=== PATIENT | female | born 1985 | race Caucasian/White ===

== ENCOUNTER 2019-04-26 14:50 | Inpatient (IN) | payer MEDICAID, SELFPAY ==
[~2019-04-26] VITALS: Ht 165.1 cm; Wt 71.9 kg
[2019-04-26] MEDS ORDERED: SODIUM CHLORIDE FLUSH 10ML SYR IVF ONE ×2 (15:00→16:00)
[2019-04-26] MEDS ORDERED: FUROSEMIDE 40 MG/4 ML ONE (15:34)
[2019-04-26] MEDS ORDERED: NITROGLYCERIN OINT 2%, 1GM TP ONE ×2 (15:34→16:00)
[2019-04-26 15:35] LABS: BASOPHILS # (AUTO) 0.06 x10^3/uL (0-0.1); BASOPHILS % (AUTO) 1 % (0-1); EOSINOPHILS # (AUTO) 0.11 x10^3/uL (0-0.4); EOSINOPHILS % (AUTO) 1 % (1-7); INTERNATIONAL NORMALIZED RATIO 1.2 (0.93-1.1); LYMPHOCYTES # (AUTO) 1.94 x10^3/uL (1-3.4); LYMPHOCYTES % (AUTO) 22 % (22-44); MD NO; MEAN CORPUSCULAR HEMOGLOBIN 33.4 pg (27.0-34.8); MEAN CORPUSCULAR VOLUME 98.2 fL (80-100); MEAN PLATELET VOLUME 7.7 fL (7.4-10.4); MONOCYTES % (AUTO) 7 % (2-9); NEUTROPHILS # (AUTO) 6.32 x10^3/uL (1.8-6.8); NEUTROPHILS % (AUTO) 70 % (42-75); PLATELET COUNT 246 x10^3/uL (130-400); PROTHROMBIN TIME 12.5 Seconds (9.6-11.5); RED BLOOD COUNT 5.74 x10^6/uL (3.82-5.3)
--- NOTE | 2019-04-26 15:35 | NUR ---
RT AT BS
[2019-04-26 15:37] LABS: ALANINE AMINOTRANSFERASE 42 U/L (12-78); ALBUMIN 3.9 g/dL (3.4-5.0); ANION GAP 9 mmol/L (5-15); CALCIUM 9.2 mg/dL (8.5-10.1); CHLORIDE 107 mmol/L (98-107); CREATININE 0.94 mg/dL (0.55-1.02)
[2019-04-26] MEDS: NITROGLYCERIN SINGLE TAB 0.4 MG SL PRN ×2 (15:39→15:48)
[2019-04-26] MEDS ORDERED: NITROGLYCERIN SINGLE TAB 0.4 MG SL ONE (15:41)
[2019-04-26 15:42] LABS: ALKALINE PHOSPHATASE 204 U/L (45-117); BILIRUBIN,TOTAL 1.5 mg/dL (0.2-1.0); TOTAL PROTEIN 8.7 g/dL (6.4-8.2)
[2019-04-26] MEDS ORDERED: CARV12.52 PO (15:52)
[2019-04-26] MEDS ORDERED: ASPI-496 PO (15:52)
[2019-04-26] MEDS ORDERED: SPIR25TA5 PO (15:52)
[2019-04-26] MEDS ORDERED: LISI5TAB7 PO (15:52)
[2019-04-26] MEDS ORDERED: FURO20TA3 PO (15:52)
[2019-04-26] MEDS ORDERED: DOXY-162 PO (15:52)
[2019-04-26] MEDS ORDERED: POTA20PA25 PO (15:52)
[2019-04-26] MEDS ORDERED: ASPIRIN 81 MG TABLET CHEW ONE (15:54)
[2019-04-26] MEDS ORDERED: FUROSEMIDE 40 MG/4 ML IVPush ONE (16:00)
[2019-04-26] MEDS ORDERED: ASPIRIN 81 MG TABLET CHEW PO ONE (16:00)
--- NOTE | 2019-04-26 16:02 | NUR ---
PT UPRIGHT ON GURNEY AWAKE & COMFORTABLE, RESPONDS APPROP TO STAFF, NAD, NO NEEDS AT THIS TIME, FAMILY AT BS, CALL LIGHT WITHIN REACH.
--- NOTE | 2019-04-26 17:04 | NUR ---
PT UPRIGHT ON GURNEY AWAKE & BREATHING MORE COMFORTABLY, NAD, RESPONDS APPROP TO STAFF, COMFORT MEASURES PROVIDED, CALL LIGHT WITHIN REACH, DIET TRAY ORDERED PER ERP OK.
[2019-04-26] MEDS ORDERED: ACETAMINOPHEN 325 MG TABLET PO PRN (17:30)
[2019-04-26] MEDS ORDERED: LABETALOL 5MG/ML, 20ML IVPush PRN (17:30)
[2019-04-26] MEDS ORDERED: GUAIFENESIN/DM 200-20MG, 10ML UDC PO PRN (17:30)
[2019-04-26] MEDS ORDERED: DOCUSATE 100 MG CAPSULE PO PRN (17:30)
[2019-04-26 17:37] LABS: AMPHETAMINE SCREEN, URINE Positive (Negative); BARBITURATE SCREEN, URINE Negative (Negative); BENZODIAZEPINE SCREEN, URINE Negative (Negative); CANNABINOID SCREEN, URINE Positive (Negative); COCAINE SCREEN, URINE Negative (Negative); METHADONE SCREEN, URINE Negative (Negative); OPIATE SCREEN, URINE Negative (Negative)
[2019-04-26 17:58] LABS: TROPONIN I 0.671 ng/mL (0.000-0.045)
[2019-04-26] MEDS ORDERED: OMNIPAQUE 350 MG/ML, 100ML BOTTLE ONE (18:24)
[2019-04-26 18:27] VITALS: BP 158/102
[2019-04-26] MEDS ORDERED: HEPARIN 5,000 UNITS/ML, 1ML IV ONE (19:00)
[2019-04-26] MEDS ORDERED: HEPARIN 25,000 UNITS/500ML PMX 500 ML IV PRN (19:00)
[2019-04-26] MEDS ORDERED: HEPARIN 5,000 UNITS/ML, 1ML IV PRN (19:00)
[2019-04-26 19:05] VITALS: BP 159/122
[2019-04-26] MEDS: hydrALAzine 20 MG/ML, 1ML IVPush PRN ×2 (19:06→23:25)
[2019-04-26 19:34] VITALS: BP 158/104
[2019-04-26] MEDS ORDERED: HEPARIN 5,000 UNITS/ML, 1ML SQ SCH (20:00)
[2019-04-26] MEDS: POTASSIUM CHLORIDE 20 MEQ TAB.ER.PRT PO SCH (20:08)
[2019-04-26] MEDS: CARVEDILOL 12.5 MG TABLET PO SCH (20:08)
[2019-04-26] MEDS ORDERED: LORazepam INTENSOL 2 MG/ML PO PRN (21:30)
[2019-04-26] MEDS ORDERED: LORazepam 1MG TABLET ONE (21:43)
[2019-04-26] MEDS ORDERED: LORazepam 1MG TABLET PO PRN (22:30)
[2019-04-26 23:37] LABS: TROPONIN I 0.637 ng/mL (0.000-0.045)
[2019-04-27 02:24] LABS: BASOPHILS # (AUTO) 0.02 x10^3/uL (0-0.1); BASOPHILS % (AUTO) 0 % (0-1); EOSINOPHILS # (AUTO) 0.07 x10^3/uL (0-0.4); EOSINOPHILS % (AUTO) 1 % (1-7); LYMPHOCYTES # (AUTO) 1.17 x10^3/uL (1-3.4); LYMPHOCYTES % (AUTO) 14 % (22-44); MD NO; MEAN CORPUSCULAR HGB CONC 33.5 g/dL (32.4-35.8); MEAN CORPUSCULAR VOLUME 98.6 fL (80-100); MEAN PLATELET VOLUME 7.6 fL (7.4-10.4); MONOCYTES # (AUTO) 0.45 x10^3/uL (0.2-0.8); MONOCYTES % (AUTO) 5 % (2-9); NEUTROPHILS # (AUTO) 6.93 x10^3/uL (1.8-6.8); NEUTROPHILS % (AUTO) 80 % (42-75); PLATELET COUNT 246 x10^3/uL (130-400); RED CELL DISTRIBUTION WIDTH 13.9 % (9.6-15.2)
[2019-04-27 02:36] LABS: ALANINE AMINOTRANSFERASE 35 U/L (12-78); ALBUMIN 2.9 g/dL (3.4-5.0); ANION GAP 8 mmol/L (5-15); CALCIUM 8.2 mg/dL (8.5-10.1); CHLORIDE 109 mmol/L (98-107); CHOLESTEROL, TOTAL 116 mg/dL (140-239); CREATININE 0.62 mg/dL (0.55-1.02); TRIGLYCERIDES 56 mg/dL (50-200); VLDL CHOLESTEROL 11 mg/dL (0-25)
[2019-04-27 02:39] LABS: ALKALINE PHOSPHATASE 150 U/L (45-117); BILIRUBIN,TOTAL 1.6 mg/dL (0.2-1.0); CHOL/HDL RATIO 2.8; HDL CHOL % 35 % (28-40); HDL CHOLESTEROL (DIRECT) 41 mg/dL (40-60); LDL CHOLESTEROL,CALCULATED 64 mg/dL (54-169); LDL/HDL RATIO 1.6 (0.5-3.0); TOTAL PROTEIN 6.4 g/dL (6.4-8.2)
[2019-04-27] MEDS ORDERED: ASPIRIN 325 MG TABLET EC PO SCH (06:00)
[2019-04-27] MEDS ORDERED: FUROSEMIDE 20 MG/2 ML IV SCH ×2 (07:30→21:00)
[2019-04-27] MEDS: POTASSIUM CHLORIDE 20 MEQ TAB.ER.PRT PO SCH ×2 (07:52→20:52)
[2019-04-27] MEDS: SPIRONOLACTONE 25 MG TABLET PO SCH (07:53)
[2019-04-27] MEDS: ASPIRIN 81 MG TABLET EC PO SCH (07:53)
[2019-04-27] MEDS: LISINOPRIL 20 MG TABLET PO SCH (07:53)
[2019-04-27] MEDS: CARVEDILOL 12.5 MG TABLET PO SCH ×2 (07:54→20:52)
[2019-04-27] MEDS ORDERED: POTASSIUM CHLORIDE 20 MEQ TAB.ER.PRT PO ONE (08:30)
[2019-04-27] MEDS ORDERED: FUROSEMIDE 20 MG/2 ML IV ONE (08:30)
[2019-04-27] MEDS ORDERED: POTASSIUM CHLORIDE 20 MEQ PACKET PO SCH (09:00)
[2019-04-27] MEDS: OXYcodone IR 5MG TABLET PO PRN ×2 (09:26→21:07)
[2019-04-27] MEDS: METOLAZONE 5 MG TABLET PO SCH ×2 (09:27→20:51)
[2019-04-27 09:51] VITALS: BP 125/69
[2019-04-27 09:52] VITALS: BP 127/67
[2019-04-27] MEDS ORDERED: FUROSEMIDE 40 MG/4 ML IV ONE (15:00)
[2019-04-27 15:01] LABS: ANION GAP 8 mmol/L (5-15); CALCIUM 8.9 mg/dL (8.5-10.1); CHLORIDE 108 mmol/L (98-107); CREATININE 0.89 mg/dL (0.55-1.02)
[2019-04-28 04:24] LABS: BASOPHILS # (AUTO) 0.05 x10^3/uL (0-0.1); BASOPHILS % (AUTO) 1 % (0-1); EOSINOPHILS # (AUTO) 0.12 x10^3/uL (0-0.4); EOSINOPHILS % (AUTO) 1 % (1-7); LYMPHOCYTES # (AUTO) 1.96 x10^3/uL (1-3.4); LYMPHOCYTES % (AUTO) 22 % (22-44); MD NO; MEAN CORPUSCULAR HGB CONC 32.7 g/dL (32.4-35.8); MEAN CORPUSCULAR VOLUME 100.9 fL (80-100); MEAN PLATELET VOLUME 7.8 fL (7.4-10.4); MONOCYTES # (AUTO) 0.52 x10^3/uL (0.2-0.8); MONOCYTES % (AUTO) 6 % (2-9); NEUTROPHILS # (AUTO) 6.27 x10^3/uL (1.8-6.8); NEUTROPHILS % (AUTO) 70 % (42-75); PLATELET COUNT 282 x10^3/uL (130-400); RED BLOOD COUNT 5.86 x10^6/uL (3.82-5.3); RED CELL DISTRIBUTION WIDTH 13.8 % (9.6-15.2)
[2019-04-28 04:30] LABS: ALANINE AMINOTRANSFERASE 32 U/L (12-78); ALBUMIN 3.1 g/dL (3.4-5.0); ANION GAP 8 mmol/L (5-15); CALCIUM 9.2 mg/dL (8.5-10.1); CHLORIDE 104 mmol/L (98-107); CREATININE 1.19 mg/dL (0.55-1.02)
[2019-04-28 04:33] LABS: ALKALINE PHOSPHATASE 167 U/L (45-117); BILIRUBIN,TOTAL 1.4 mg/dL (0.2-1.0); TOTAL PROTEIN 7.2 g/dL (6.4-8.2)
[2019-04-28] MEDS: LORazepam 2 MG/ML, 1ML IVPush PRN ×2 (07:33→13:25)
[2019-04-28] MEDS: SPIRONOLACTONE 25 MG TABLET PO SCH (08:57)
[2019-04-28] MEDS: ASPIRIN 81 MG TABLET EC PO SCH (08:57)
[2019-04-28] MEDS: POTASSIUM CHLORIDE 20 MEQ TAB.ER.PRT PO SCH ×2 (08:57→20:06)
[2019-04-28] MEDS: LISINOPRIL 20 MG TABLET PO SCH (08:57)
[2019-04-28] MEDS: CARVEDILOL 12.5 MG TABLET PO SCH ×2 (08:58→21:00)
[2019-04-28] MEDS ORDERED: FUROSEMIDE 20 MG/2 ML IV SCH (09:00)
[2019-04-28] MEDS: OXYcodone IR 5MG TABLET PO PRN (09:04)
[2019-04-28] MEDS: ENOXAPARIN 40 MG/0.4 ML SQ SCH (09:05)
[2019-04-28] MEDS: ONDANSETRON ODT 4 MG PO PRN ×2 (13:25→20:33)
[2019-04-29] MEDS ORDERED: SODIUM CHLORIDE 0.9%, 250ML IVBOLUS ONE (03:00)
[2019-04-29 04:45] LABS: BASOPHILS # (AUTO) 0.12 x10^3/uL (0-0.1); BASOPHILS % (AUTO) 1 % (0-1); EOSINOPHILS # (AUTO) 0.09 x10^3/uL (0-0.4); EOSINOPHILS % (AUTO) 1 % (1-7); LYMPHOCYTES # (AUTO) 2.09 x10^3/uL (1-3.4); LYMPHOCYTES % (AUTO) 19 % (22-44); MD NO; MEAN CORPUSCULAR HEMOGLOBIN 32.7 pg (27.0-34.8); MEAN CORPUSCULAR HGB CONC 32.3 g/dL (32.4-35.8); MEAN CORPUSCULAR VOLUME 101.2 fL (80-100); MEAN PLATELET VOLUME 7.8 fL (7.4-10.4); MONOCYTES # (AUTO) 0.73 x10^3/uL (0.2-0.8); MONOCYTES % (AUTO) 7 % (2-9); NEUTROPHILS % (AUTO) 73 % (42-75); PLATELET COUNT 303 x10^3/uL (130-400); RED BLOOD COUNT 5.92 x10^6/uL (3.82-5.3); RED CELL DISTRIBUTION WIDTH 13.9 % (9.6-15.2)
[2019-04-29 04:46] LABS: ANION GAP 6 mmol/L (5-15); CALCIUM 9.2 mg/dL (8.5-10.1); CHLORIDE 103 mmol/L (98-107); CREATININE 1.34 mg/dL (0.55-1.02)
[2019-04-29] MEDS ORDERED: SODIUM CHLORIDE 0.9%, 500ML IVBOLUS ONE (07:00)
[2019-04-29] MEDS: ENOXAPARIN 40 MG/0.4 ML SQ SCH (09:43)
[2019-04-29] MEDS: ASPIRIN 81 MG TABLET EC PO SCH (09:43)
[2019-04-29] MEDS: OXYcodone IR 5MG TABLET PO PRN (14:45)
[2019-04-29] MEDS: LORazepam 2 MG/ML, 1ML IVPush PRN (17:57)
[2019-04-30 04:23] LABS: BASOPHILS # (AUTO) 0.05 x10^3/uL (0-0.1); BASOPHILS % (AUTO) 1 % (0-1); EOSINOPHILS # (AUTO) 0.14 x10^3/uL (0-0.4); EOSINOPHILS % (AUTO) 2 % (1-7); LYMPHOCYTES # (AUTO) 2.04 x10^3/uL (1-3.4); LYMPHOCYTES % (AUTO) 23 % (22-44); MD NO; MEAN CORPUSCULAR HGB CONC 32.9 g/dL (32.4-35.8); MEAN CORPUSCULAR VOLUME 100.1 fL (80-100); MEAN PLATELET VOLUME 7.5 fL (7.4-10.4); MONOCYTES # (AUTO) 0.68 x10^3/uL (0.2-0.8); MONOCYTES % (AUTO) 8 % (2-9); NEUTROPHILS # (AUTO) 5.88 x10^3/uL (1.8-6.8); NEUTROPHILS % (AUTO) 67 % (42-75); PLATELET COUNT 291 x10^3/uL (130-400); RED CELL DISTRIBUTION WIDTH 13.9 % (9.6-15.2)
[2019-04-30 04:32] LABS: ANION GAP 6 mmol/L (5-15); CALCIUM 8.3 mg/dL (8.5-10.1); CHLORIDE 104 mmol/L (98-107); CREATININE 0.98 mg/dL (0.55-1.02)
[2019-04-30] MEDS: LORazepam 2 MG/ML, 1ML IVPush PRN ×2 (06:18→21:32)
[2019-04-30] MEDS: SILDENAFIL 20 MG TABLET PO SCH ×3 (09:49→21:32)
[2019-04-30] MEDS ORDERED: SILDENAFIL 10MG/12.5ML IVPush SCH (10:00)
[2019-04-30] MEDS ORDERED: MAGNESIUM SULFATE PMX 2GM/50ML 50 ML IV ONE (11:00)
[2019-04-30] MEDS ORDERED: LISINOPRIL 5 MG TABLET PO SCH (11:00)
[2019-04-30] MEDS: OXYcodone IR 5MG TABLET PO PRN (14:04)
[2019-04-30] MEDS: ASPIRIN 81 MG TABLET EC PO SCH (14:04)
[2019-04-30] MEDS: ENOXAPARIN 40 MG/0.4 ML SQ SCH (14:05)
[2019-04-30] MEDS: SPIRONOLACTONE 25 MG TABLET PO SCH (14:05)
[2019-05-01] MEDS: SILDENAFIL 20 MG TABLET PO SCH ×3 (08:52→20:52)
[2019-05-01] MEDS: ASPIRIN 81 MG TABLET EC PO SCH (08:52)
[2019-05-01] MEDS: SPIRONOLACTONE 25 MG TABLET PO SCH (08:52)
[2019-05-01] MEDS: ENOXAPARIN 40 MG/0.4 ML SQ SCH (08:53)
[2019-05-01] MEDS: OXYcodone IR 5MG TABLET PO PRN (12:59)
[2019-05-01] MEDS: LISINOPRIL 5 MG TABLET PO SCH (18:26)
[2019-05-01] MEDS: DOCUSATE 100 MG CAPSULE PO SCH (20:52)
[2019-05-01] MEDS: LORazepam 2 MG/ML, 1ML IVPush PRN (22:03)
[2019-05-02] MEDS: OXYcodone IR 5MG TABLET PO PRN (03:53)
[2019-05-02 04:33] LABS: ANION GAP 5 mmol/L (5-15); CALCIUM 8.5 mg/dL (8.5-10.1); CHLORIDE 105 mmol/L (98-107); CREATININE 0.83 mg/dL (0.55-1.02)
[2019-05-02] MEDS: ASPIRIN 81 MG TABLET EC PO SCH (08:35)
[2019-05-02] MEDS: DOCUSATE 100 MG CAPSULE PO SCH ×2 (08:35→21:18)
[2019-05-02] MEDS: CARVEDILOL 3.125 MG TABLET PO SCH ×2 (08:35→17:22)
[2019-05-02] MEDS: SPIRONOLACTONE 25 MG TABLET PO SCH (08:35)
[2019-05-02] MEDS: SILDENAFIL 20 MG TABLET PO SCH ×3 (08:35→21:18)
[2019-05-02] MEDS ORDERED: SILDENAFIL 20 MG TABLET PO ONE (09:30)
[2019-05-02] MEDS ORDERED: CARVEDILOL 3.125 MG TABLET PO ONE (09:30)
[2019-05-02] MEDS ORDERED: SPIRONOLACTONE 25 MG TABLET PO ONE (09:30)
[2019-05-02] MEDS: ENOXAPARIN 40 MG/0.4 ML SQ SCH (11:12)
[2019-05-02] MEDS: LISINOPRIL 5 MG TABLET PO SCH (17:21)
[2019-05-02 17:26] VITALS: BP 103/73
[2019-05-02 19:32] VITALS: BP 95/66
[2019-05-02 21:00] VITALS: BP 106/68
[2019-05-02] MEDS: LORazepam 2 MG/ML, 1ML IVPush PRN (21:24)
[2019-05-03 00:30] VITALS: BP 102/71
[2019-05-03 05:11] VITALS: BP 96/69
[2019-05-03] MEDS: CARVEDILOL 3.125 MG TABLET PO SCH ×2 (05:14→17:09)
[2019-05-03 06:11] LABS: CHLORIDE 102 mmol/L (98-107)
[2019-05-03 06:18] LABS: BASOPHILS # (AUTO) 0.05 x10^3/uL (0-0.1); BASOPHILS % (AUTO) 1 % (0-1); EOSINOPHILS % (AUTO) 2 % (1-7); LYMPHOCYTES # (AUTO) 1.73 x10^3/uL (1-3.4); LYMPHOCYTES % (AUTO) 26 % (22-44); MD NO; MEAN CORPUSCULAR HGB CONC 32.7 g/dL (32.4-35.8); MEAN CORPUSCULAR VOLUME 100.9 fL (80-100); MEAN PLATELET VOLUME 7.2 fL (7.4-10.4); MONOCYTES # (AUTO) 0.55 x10^3/uL (0.2-0.8); MONOCYTES % (AUTO) 8 % (2-9); NEUTROPHILS % (AUTO) 64 % (42-75); PLATELET COUNT 310 x10^3/uL (130-400); RED BLOOD COUNT 4.92 x10^6/uL (3.82-5.3); RED CELL DISTRIBUTION WIDTH 14.8 % (9.6-15.2)
[2019-05-03 06:20] LABS: ANION GAP 5 mmol/L (5-15); CALCIUM 8.7 mg/dL (8.5-10.1); CREATININE 0.91 mg/dL (0.55-1.02)
[2019-05-03 07:45] VITALS: BP 96/69
[2019-05-03] MEDS: SILDENAFIL 20 MG TABLET PO SCH ×2 (09:00→17:08)
[2019-05-03] MEDS: ASPIRIN 81 MG TABLET EC PO SCH (09:36)
[2019-05-03] MEDS: DOCUSATE 100 MG CAPSULE PO SCH (09:36)
[2019-05-03] MEDS: SPIRONOLACTONE 25 MG TABLET PO SCH (09:36)
[2019-05-03] MEDS: ENOXAPARIN 40 MG/0.4 ML SQ SCH (09:43)
[2019-05-03 13:48] VITALS: BP 113/83
[2019-05-03] MEDS ORDERED: ASPI81TA45 PO (16:40)
[2019-05-03] MEDS ORDERED: CARV3.1212 PO (16:40)
[2019-05-03] MEDS ORDERED: LISI5TAB7 PO (16:40)
[2019-05-03] MEDS ORDERED: SILD20TA PO (16:40)
[2019-05-03 17:07] VITALS: BP 105/79
[2019-05-03] MEDS: LISINOPRIL 5 MG TABLET PO SCH (17:08)
== END 2019-05-03 17:35 | disposition home or self-care (01) | DRG 291 ==
LOC: ED 16:50 → EDIP 16:51 → ED 17:31 → 5SO 18:29 → CCU 22:48 → 4WST 05-02 11:29
PROVIDERS: ADMIT Internal Medicine; ATTEND Internal Medicine
DX: I11.0 Hypertensive heart disease with heart failure (principal); J96.21 Acute and chronic respiratory failure with hypoxia; N17.0 Acute kidney failure with tubular necrosis; L97.929 Non-pressure chronic ulcer of unspecified part of left lower leg with unspecified severity; D75.1 Secondary polycythemia; I50.43 Acute on chronic combined systolic (congestive) and diastolic (congestive) heart failure; I42.8 Other cardiomyopathies; E87.6 Hypokalemia; F12.90 Cannabis use, unspecified, uncomplicated; F15.10 Other stimulant abuse, uncomplicated; F41.9 Anxiety disorder, unspecified; I07.1 Rheumatic tricuspid insufficiency; I27.20 Pulmonary hypertension, unspecified; I37.1 Nonrheumatic pulmonary valve insufficiency; G72.89 Other specified myopathies; T50.2X5A Adverse effect of carbonic-anhydrase inhibitors, benzothiadiazides and other diuretics, initial encounter; Y92.89 Other specified places as the place of occurrence of the external cause; Z91.14 Patient's other noncompliance with medication regimen; Z98.891 History of uterine scar from previous surgery; Z99.81 Dependence on supplemental oxygen
CPT/HCPCS: 36415; 36600; 71045; 71275; 80048; 80053; 80061; 80307; 82803; 83036; 83735; 83880; 84443; 84484; 85025; 85520; 85610; 87081; 93005; 93306; 99195; 99291; G0378; J1644; J1650; J1940; Q0162; Q9967; J0360; J2060; J3475; J7040; J7050

== ENCOUNTER 2019-05-11 13:13 | Outpatient (CLI) | payer MEDICAID ==
[~2019-05-11 13:13] MED LIST: ASPI-496 PO; ASPI81TA45 PO; CARV12.52 PO; CARV3.1212 PO; DOXY-162 PO; FURO20TA3 PO; LISI5TAB7 PO; POTA20PA25 PO; SILD20TA PO; SPIR25TA5 PO
== END 2019-05-11 23:59 | disposition home or self-care (01) ==
LOC: WOUND 13:13
PROVIDERS: ATTEND Internal Medicine
DX: I87.312 Chronic venous hypertension (idiopathic) with ulcer of left lower extremity (principal); L97.222 Non-pressure chronic ulcer of left calf with fat layer exposed; F19.10 Other psychoactive substance abuse, uncomplicated; I11.0 Hypertensive heart disease with heart failure; I50.9 Heart failure, unspecified; F41.9 Anxiety disorder, unspecified; Z87.891 Personal history of nicotine dependence
CPT/HCPCS: 97597; 99215

== ENCOUNTER → 2019-05-18 | Outpatient (CLI) | payer MEDICAID | END | disposition home or self-care (01) | LOC: WOUND 09:38 | PROVIDERS: ATTEND Internal Medicine | DX: I87.312 Chronic venous hypertension (idiopathic) with ulcer of left lower extremity (principal); L97.222 Non-pressure chronic ulcer of left calf with fat layer exposed; F19.10 Other psychoactive substance abuse, uncomplicated; I11.0 Hypertensive heart disease with heart failure; I50.9 Heart failure, unspecified; F41.9 Anxiety disorder, unspecified; Z87.891 Personal history of nicotine dependence | CPT/HCPCS: 97597 ==

== ENCOUNTER → 2019-05-25 | Outpatient (CLI) | payer MEDICAID | END | disposition home or self-care (01) | LOC: WOUND 11:06 | PROVIDERS: ATTEND Internal Medicine | DX: I87.312 Chronic venous hypertension (idiopathic) with ulcer of left lower extremity (principal); L97.222 Non-pressure chronic ulcer of left calf with fat layer exposed; F19.10 Other psychoactive substance abuse, uncomplicated; I11.0 Hypertensive heart disease with heart failure; I50.9 Heart failure, unspecified; F41.9 Anxiety disorder, unspecified; Z87.891 Personal history of nicotine dependence | CPT/HCPCS: 97597 ==